=== PATIENT | male | born 1980 | race African-American/Black ===

== ENCOUNTER 2017-11-01 16:35 | Emergency (ER) | payer SELFPAY ==
[~2017-11-01] VITALS: Ht 172.7 cm; Wt 81.8 kg
[2017-11-01 16:50] VITALS: Ht 172.7 cm; Wt 81.8 kg
[2017-11-01] MEDS ORDERED: TORADOL10 MG PO (22:01)
[2017-11-01 22:44] VITALS: BP 128/75
== END 2017-11-01 22:46 | disposition home or self-care (01) ==
LOC: D.ER 16:35
DX: S16.1XXA Strain of muscle, fascia and tendon at neck level, initial encounter (principal); V43.62XA Car passenger injured in collision with other type car in traffic accident, initial encounter; Y93.89 Activity, other specified; Y92.410 Unspecified street and highway as the place of occurrence of the external cause; M25.512 Pain in left shoulder